=== PATIENT | female | born 1995 | race Caucasian/White ===

== ENCOUNTER 2016-04-23 19:50 | Emergency (ER) | payer OTHER ==
[~2016-04-23] VITALS: Ht 149.9 cm; Wt 108.5 kg
[~2016-04-23 19:50] MED LIST: HYDR25SU23 PR; PANT40TA3 PO
[2016-04-23 19:59] VITALS: Ht 149.9 cm; Wt 108.5 kg
[2016-04-23] MEDS ORDERED: SOD CHLORIDE 0.9% 1,000 ML IV STA (21:47)
[2016-04-23] MEDS ORDERED: ONDANSETRON 4 MG INJ IV STA (21:47)
[2016-04-23] MEDS ORDERED: morphine 4 MG/ML VIAL IV STA (21:47)
--- NOTE | 2016-04-23 22:06 | ERD ---
ER Documentation Chief Complaint Date/Time DATE: 04/23/16 TIME: 22:03 Chief Complaint RLQ abd. pain since today- hx R ovarian cyst. N/V/D x 2 wks, fever/dysuria HPI 20-year-old female presents here in emergency department for complaints of right lower quadrant abdominal pain started today. Patient described the pain as sharp pain, 6/10 scale, accompanied with fever, and nausea vomiting diarrhea. Patient had nausea vomiting diarrhea for 2 weeks now. Patient started to have fever today. Patient also has been complaining of dysuria, burning pain , 4/10 scale, worse upon urination. Patient denies any flank pain. Patient denies any sick contacts. Patient has history of ovarian cyst on the right side , worried that it may be causing the pain. ROS All systems reviewed and are negative except as per history of present illness. Medications Home Meds Active Scripts Hydrocortisone Acetate (Anusol-Hc) 25 Mg Supp.rect, 25 MG ND QHS Y for HEMORROID PAIN/ITCHING for 28 Days, SUPP.RECT Prov:RAMSEY MENENDEZ MD 12/30/15 Pantoprazole* (Protonix*) 40 Mg Tablet.dr, 40 MG PO DAILY for 28 Days, TAB Prov:RAMSEY MENENDEZ MD 12/30/15 Allergies Allergies: Coded Allergies: No Known Allergy (Unverified , 12/27/15) PMhx/Soc History of Surgery: Yes (Tonsillectomy) Anesthesia Reaction: No Hx Neurological Disorder: No Hx Respiratory Disorders: No Hx Cardiac Disorders: No Hx Psychiatric Problems: No Hx Miscellaneous Medical Probl: Yes (Right breast lump) Hx Alcohol Use: No Hx Substance Use: No Hx Tobacco Use: No FmHx Family History: No coronary disease, No diabetes, No other Physical Exam Vitals Vital Signs Date Time Temp Pulse Resp B/P Pulse Ox O2 Delivery O2 Flow Rate FiO2 04/23/16 19:59 98.8 98 20 141/99 98 Physical Exam GENERAL: The patient is well developed and appropriate for usual state of health, in no apparent distress. CHEST: Clear to auscultation bilaterally. There are no rales, wheezes or rhonchi. HEART: Regular rate and rhythm. No murmurs, clicks, rubs or gallops. No S3 or S4. ABDOMEN: Soft, nontender and nondistended. Good bowel sounds. No rebound or guarding. No gross peritonitis. No gross organomegaly or masses. No Arguello sign or McBurney point tenderness. BACK: No midline or flank tenderness. EXTREMITIES: Equal pulses bilaterally. There is no peripheral clubbing, cyanosis or edema. No focal swelling or erythema. Full range of motion. Grossly neurovascularly intact. NEURO: Alert and oriented. Cranial nerves 2-12 intact. Motor strength in all 4 extremities with 5/5 strength. Sensation grossly intact. Normal speech and gait. SKIN: There is no apparent rash or petechia. The skin is warm and dry. HEMATOLOGIC AND LYMPHATIC: There is no evidence of excessive bruising or lymphedema. No gross cervical, axillary, or inguinal lymphadenopathy. Result Diagram: 04/23/16219904/23/162199 Results 24 hrs Laboratory Tests Test 04/23/16 22:00 Alanine Aminotransferase (ALT/SGPT) 41IU/L Albumin 4.4g/dl Albumin/Globulin Ratio 1.10 Alkaline Phosphatase 120IU/L Anion Gap 17 Aspartate Amino Transf (AST/SGOT) 28IU/L Basophils # 0.010^3/ul Basophils % 0.5% Blood Urea Nitrogen 15mg/dl Calcium Level 9.3mg/dl Carbon Dioxide Level 26mmol/L Chloride Level 103mmol/L Creatinine 0.65mg/dl Direct Bilirubin 0.00mg/dl Eosinophils # 0.310^3/ul Eosinophils % 3.2% Globulin 4.00g/dl Glucose Level 95mg/dl Hematocrit 39.2% Hemoglobin 13.3g/dl Indirect Bilirubin 0.2mg/dl Lipase 86U/L Lymphocytes # 2.310^3/ul Lymphocytes % 28.7% Mean Corpuscular Hemoglobin 31.1pg Mean Corpuscular Hemoglobin Concent 34.0g/dl Mean Corpuscular Volume 91.5fl Mean Platelet Volume 8.0fl Monocytes # 0.410^3/ul Monocytes % 5.7% Neutrophils # 4.910^3/ul Neutrophils % 61.9% Nucleated Red Blood Cells # 0.010^3/ul Nucleated Red Blood Cells % 0.0/100WBC Platelet Count 93064^3/UL Potassium Level 4.0mmol/L Red Blood Count 4.2810^6/ul Red Cell Distribution Width 13.1% Sodium Level 142mmol/L Total Bilirubin 0.2mg/dl Total Protein 8.4g/dl Urine Bacteria MODERATE Urine Bilirubin NEGATIVE Urine Clarity CLOUDY Urine Color YELLOW Urine Glucose NEGATIVE% Urine Hemoglobin NEGATIVE Urine Ketones NEGATIVE Urine Leukocyte Esterase TRACE Urine Microscopic RBC 0-2/HPF Urine Microscopic WBC 5-10/HPF Urine Nitrite NEGATIVE Urine Specific [place] 1.025 Urine Squamous Epithelial Cells MODERATE Urine Total Protein NEGATIVE Urine Urobilinogen 0.2 E.U./dL Urine pH 6.0 White Blood Count 7.910^3/ul Current Medications Medications (Trade) Dose Ordered Sig/Katrin Route PRN Reason Start Time Stop Time Status Last Admin Dose Admin Sodium Chloride (NS) 1,000 ml @ 1,000 mls/hr Q1H STAT IV 04/23/16 21:47 04/23/16 22:46 DC 04/23/16 22:17 Morphine Sulfate (morphine) 4 mg ONCE STAT IV 04/23/16 21:47 04/23/16 21:49 DC 04/23/16 22:17 Ondansetron HCl (Zofran Inj) 4 mg ONCE STAT IV 04/23/16 21:47 04/23/16 21:49 DC 04/23/16 22:17 Patient was given medication for pain here in emergency department, after treatment, patient verbalized feeling much better. Patient's pain is improved. Patient was given Zofran here in the emergency department. After treatment, patient was able to tolerate po fluids here in the emergency department without any vomiting. There is no signs and symptoms of dehydration. Normal saline IV bolus was given here in emergency department for rehydration, patient tolerated IV fluids. PROCEDURE: CT Abdomen and Pelvis without contrast. CLINICAL INDICATION: Pain. TECHNIQUE: CT scan of the abdomen and pelvis was performed on a multidetector slice CT scanner. No intravenous contrast material was utilized. Sagittal and coronal reformatted images were obtained from the axial source images. Images were reviewed on a high-resolution PACS workstation. Exam CTDlvol = 23 mGy and DLP = 1316 Gy-cm. COMPARISON: 12/27/2015 FINDINGS: There are few loops of mildly dilated small old air-fluid levels in the left abdomen. There is a small fat containing periumbilical hernia. There is a short appendix or appendiceal stump is visualized and is normal in appearance without evidence for acute appendicitis. There is no evidence for diverticulitis. There is no free fluid. The liver is enlarged 18.6 cm length and diffusely hypodense/fatty.. No intrahepatic lesions are identified. The gallbladder is normal in appearance. There is no definite biliary ductal dilation. Pancreas is normal in appearance. Spleen is unremarkable.. There are no adrenal masses. The aorta is normal caliber. Kidneys are normal in appearance without hydronephrosis, mass or calculus. Ureters are of normal caliber. Urinary bladder is unremarkable. The uterus and ovaries are unremarkable. The bones are unremarkable. Limited evaluation lung bases is unremarkable. IMPRESSION: 1. Nonspecific mildly dilated proximal/mid small bowel with mild dilatation air -fluid levels, suggestive of a mild enteritis. Remainder of bowel is normal in appearance. 2. Small appendix or appendiceal stump identified and normal in appearance without evidence for appendicitis. 3. Enlarged fatty liver. 4. Otherwise negative examination. RPTAT: HMVK .Elian Baltazar MD, MD Date Time Electronically viewed and signed by .Elian Baltazar MD, MD on 04/23/2016 23:27 .K/ CC: JOVANA GILES [employer]PER[employer] Procedures/MDM Medical Decision Making: Patient's symptoms is likely consistent with enteritis , most likely can be acute bacterial gastroenteritis, as per discussion with my attending physician, Dr. Yancey, outpatient management is appropriate at this time, patient will be covered with Flagyl and ciprofloxacin to treat with symptoms. There is also trace of leukocytes in the urine, ciprofloxacin should cover the urinary tract infection. No symptoms of pyelonephritis at this time. There is low suspicion for abdominal emergencies at this time. Patients abdominal exam is normal at this time. Patients radiology exam does not show any abdominal emergencies at this time. There is low suspicion for appendicitis , cholecystitis, abdominal aortic aneurysms or peritonitis at this time. There is low suspicion for sepsis. Patient appears well and is hemodynamically stable . Disposition: Home. Condition: Stable Prescription ciprofloxacin, Flagyl, Bentyl, Zofran Instructions: Patient is advised to take medications as prescribed. Patient is advised to rest, increase fluid intake and do brat diet for next 1-2 days and progress as tolerated. Patient is advised that if symptoms are worse, severe abdominal pain, uncontrolled vomiting, high fever, severe flank pain, worst signs and symptoms, to return to the emergency department immediately. Otherwise, patient can follow up with primary care doctor in 5-7 days. Departure Diagnosis: Primary Impression: Acute gastroenteritis Condition: Stable Patient Instructions: Bacterial Gastroenteritis Additional Instructions: Patient is advised to take medications as prescribed. Patient is advised to rest , increase fluid intake and do brat diet for next 1-2 days and progress as tolerated. Patient is advised that if symptoms are worse, severe abdominal pain , uncontrolled vomiting, high fever, severe flank pain, worst signs and symptoms , to return to the emergency department immediately. Otherwise, patient can follow up with primary care doctor in 5-7 days. JOVANA GILES NP Apr 23, 2016 22:05
[2016-04-23 22:31] LABS: BASOPHILS % 0.5 % (0.0-2.0); EOSINOPHILS # 0.3 10^3/ul (0.0-0.5); EOSINOPHILS % 3.2 % (0.0-7.0); HEMATOCRIT 39.2 % (37.0-47.0); HEMOGLOBIN 13.3 g/dl (12.0-16.0); LYMPHOCYTES # 2.3 10^3/ul (0.8-2.9); LYMPHOCYTES % 28.7 % (15.0-51.0); MEAN CORPUSCULAR HEMOGLOBIN 31.1 pg (29.0-33.0); MEAN CORPUSCULAR VOLUME 91.5 fl (82.0-101.0); MONOCYTE # 0.4 10^3/ul (0.3-0.9); MONOCYTES % 5.7 % (0.0-11.0); NEUTROPHIL # 4.9 10^3/ul (1.6-7.5); NEUTROPHILS % 61.9 % (39.0-77.0); PLATELET COUNT 327 10^3/UL (140-440); RED BLOOD COUNT 4.28 10^6/ul (4.20-5.40); RED CELL DISTRIBUTION WIDTH 13.1 % (11.5-14.5); UNCORRECTED WBC 7.9 10^3/ul (4.8-10.8); WHITE BLOOD COUNT 7.9 10^3/ul (4.8-10.8)
[2016-04-23 22:37] LABS: ADD UMIC YES; URINE BILIRUBIN (Dip) NEGATIVE (NEGATIVE); URINE BLOOD (Dip) NEGATIVE (NEGATIVE); URINE GLUCOSE (Dip) NEGATIVE (NEGATIVE); URINE KETONES (Dip) NEGATIVE (NEGATIVE); URINE LEUKOCYTE ESTERASE (Dip) TRACE (NEGATIVE); URINE NITRITE (Dip) NEGATIVE (NEGATIVE); URINE TOTAL PROTEIN (Dip) NEGATIVE (NEGATIVE); URINE UROBILINOGEN (Dip) 0.2 E.U./dL (0.1-1.0)
[2016-04-23 22:39] LABS: ALBUMIN 4.4 g/dl (3.3-4.9)
[2016-04-23 22:41] LABS: CREATININE 0.65 mg/dl (0.44-1.00)
[2016-04-23 22:42] LABS: ALBUMIN/GLOBULIN RATIO 1.1; BILIRUBIN,INDIRECT 0.2 mg/dl (0-1.1); BILIRUBIN,TOTAL 0.2 mg/dl (0.2-1.3); CALCIUM 9.3 mg/dl (8.4-10.2); TOTAL PROTEIN 8.4 g/dl (6.1-8.1)
[2016-04-23 22:54] LABS: CONDITION 1
[2016-04-23 22:57] LABS: BACTERIA,URINE MODERATE; SQUAMOUS EPITHELIAL CELL,UR MODERATE; URINE COLOR YELLOW (YELLOW); URINE RBCS 0-2 /HPF (0)
--- NOTE | 2016-04-23 23:27 | RADRPT ---
PROCEDURE: CT Abdomen and Pelvis without contrast. CLINICAL INDICATION: Pain. TECHNIQUE: CT scan of the abdomen and pelvis was performed on a multidetector slice CT scanner. N o intravenous contrast material was utilized. Sagittal and coronal reformatted images were obtained from the axial source images. Images were reviewed on a high-resolution PACS workstation. Exam CTDl vol = 23 mGy and DLP = 1316 Gy-cm. COMPARISON: 12/27/2015 FINDINGS: There are few loops of mildly dilated small old air-fluid levels in the left abdomen. There is a sma ll fat containing periumbilical hernia. There is a short appendix or appendiceal stump is visualized and is normal in appearance without evidence for acute appendicitis. There is no evidence for dive rticulitis. There is no free fluid. The liver is enlarged 18.6 cm length and diffusely hypodense/fatty.. No intrahepatic lesions are id entified. The gallbladder is normal in appearance. There is no definite biliary ductal dilation. P ancreas is normal in appearance. Spleen is unremarkable.. There are no adrenal masses. The aorta i s normal caliber. Kidneys are normal in appearance without hydronephrosis, mass or calculus. Ureters are of normal ca liber. Urinary bladder is unremarkable. The uterus and ovaries are unremarkable. The bones are unremarkable. Limited evaluation lung bases is unremarkable. IMPRESSION: 1. Nonspecific mildly dilated proximal/mid small bowel with mild dilatation air-fluid levels, sugge stive of a mild enteritis. Remainder of bowel is normal in appearance. 2. Small appendix or appendiceal stump identified and normal in appearance without evidence for clarissa endicitis. 3. Enlarged fatty liver. 4. Otherwise negative examination. RPTAT: HMVK .Elian Baltazar MD, MD Date Time Electronically viewed and signed by .Elian Baltazar MD, MD on 04/23/2016 23:27 .K/
[2016-04-23] MEDS ORDERED: CIPR500T4 PO (23:38)
[2016-04-23] MEDS ORDERED: ONDA4TAB14 PO (23:38)
[2016-04-23] MEDS ORDERED: DICY20TA59 PO (23:38)
[2016-04-23] MEDS ORDERED: METR500T PO (23:38)
[2016-04-24] VITALS: BP 129/94; PULSE 91; RESP 18; TEMP 98.9
== END 2016-04-24 | disposition home or self-care (01) ==
LOC: FTE 19:50
DX: K52.9 Noninfective gastroenteritis and colitis, unspecified (principal); R11.2 Nausea with vomiting, unspecified; R10.2 Pelvic and perineal pain
CPT/HCPCS: 36415; 74176; 80053; 81001; 83690; 85025; 96374; 96375; J2270; J2405; J7030; Z7502; 81003

== ENCOUNTER 2016-11-26 19:29 | Emergency (ER) | payer OTHER ==
[~2016-11-26] VITALS: Ht 160 cm; Wt 106.0 kg
[~2016-11-26 19:29] MED LIST changes: +CIPR500T4 PO; +DICY20TA59 PO; +METR500T PO; +ONDA4TAB14 PO
[2016-11-26 19:35] VITALS: Ht 160 cm; Wt 106.0 kg
[2016-11-26] MEDS ORDERED: OMEP20CA16 PO (21:04)
[2016-11-26] MEDS ORDERED: CEPH-443 PO (21:05)
[2016-11-26 21:40] VITALS: BP 117/84; PULSE 83; RESP 19; TEMP 98.6
--- NOTE | 2016-11-26 23:09 | ERD ---
ER Documentation Chief Complaint Date/Time DATE: 11/26/16 TIME: 23:06 Chief Complaint R ring finger swelling w/psoriasis flare today HPI Patient is a 20-year-old female with a past medical history of psoriasis who presents to the ED with right second digit finger pain 2 days. She states that it is painful by her nail. Denies fever chills. Denies radiation of pain. Denies trauma. Up-to-date with her immunizations. No other complaints. ROS All systems reviewed and are negative except as per history of present illness. Medications Home Meds Active Scripts Cephalexin* (Keflex*) 500 Mg Capsule, 500 MG PO QID for 5 Days, CAP Prov:YESSI MAJOR PA-C 11/26/16 Omeprazole* (Omeprazole*) 20 Mg Capsule.dr, 20 MG PO BID, #20 Prov:YESSI MAJOR PA-C 11/26/16 Ondansetron (Ondansetron Odt) 4 Mg Tab.rapdis, 4 MG PO Q8 Y for NAUSEA AND/OR VOMITING, #30 TAB Prov:JOVANA GILES NP 04/23/16 Ciprofloxacin Hcl* (Ciprofloxacin Hcl*) 500 Mg Tablet, 500 MG PO BID for 10 Days , TAB Prov:JOVANA GILES NP 04/23/16 Dicyclomine Hcl* (Bentyl*) 20 Mg Tablet, 20 MG PO QID, #20 TAB Prov:JOVANA GILES NP 04/23/16 Metronidazole* (Flagyl*) 500 Mg Tablet, 500 MG PO TID for 10 Days, TAB Prov:JOVANA GILES NP 04/23/16 Hydrocortisone Acetate (Anusol-Hc) 25 Mg Supp.rect, 25 MG [place] QHS Y for HEMORROID PAIN/ITCHING for 28 Days, SUPP.RECT Prov:RAMSEY MENENDEZ MD 12/30/15 Pantoprazole* (Protonix*) 40 Mg Tablet.dr, 40 MG PO DAILY for 28 Days, TAB Prov:RAMSEY MENENDEZ MD 12/30/15 Allergies Allergies: Coded Allergies: No Known Allergy (Unverified , 12/27/15) PMhx/Soc Medical and Surgical Hx: pt denies Medical Hx, pt denies Surgical Hx History of Surgery: Yes (Tonsillectomy) Anesthesia Reaction: No Hx Neurological Disorder: No Hx Respiratory Disorders: No Hx Cardiac Disorders: No Hx Psychiatric Problems: No Hx Miscellaneous Medical Probl: Yes (Right breast lump) Hx Alcohol Use: No Hx Substance Use: No Hx Tobacco Use: No Smoking Status: Never smoker FmHx Family History: No coronary disease, No diabetes, No other Physical Exam Vitals Vital Signs Date Time Temp Pulse Resp B/P Pulse Ox O2 Delivery O2 Flow Rate FiO2 11/26/16 21:40 98.6 83 19 117/84 96 Room Air 11/26/16 19:35 99.5 99 18 142/84 95 Physical Exam fema GENERAL: Well-developed, well-nourished female. Appears in no acute distress. HEAD: Normocephalic, atraumatic. EYES: Pupils are equally reactive bilaterally. EOMs grossly intact. No conjunctival erythema. ENT: Moist mucous membranes. No uvula deviation. No kissing tonsils. No exudates. NECK: Supple. No lymphadenopathy or thyromegaly. No meningismus. negative kernig. negative brudinski. LUNG: Clear to auscultation bilaterally. No rhonchi, wheezing, rales or coarse breath sounds. HEART: Regular rate and rhythm. No murmurs, rubs or gallops. NEUROLOGIC: Alert and oriented. Moving all four extremities. 5/5 strength in all extremities. Normal speech. Steady gait. SKIN: Multiple psoriatic lesions on bilateral arms with no signs of infection.. paronychia to right second digit. no signs of felon. Pulses intact. Flexion of DIP and PIP intact. No radiation of pain. Radius, ulnar and median nerve intact. . Capillary refill < 2 seconds Procedures/MDM ER COURSE: I kept the patient and/or family informed of laboratory and diagnostic imaging results throughout the emergency room course. MEDICAL DECISION MAKING: This is a 20-year-old female who presents with infection to her right second digit 2 days. Vital signs were reviewed. Patient is afebrile. Patient is not hypoxic. She is not toxic or ill-appearing. Patient has a paronychia. Abscess Incision and Drainage with irrigation by me: Location: right second digit Anesthesia: none Packing: [None] Complications: [Neurovascularly intact post procedure] 48 hour wound check. Scar minimization instructions given. Patient's skin symptoms have stabilized while they have been evaluated in the department and are appropriate for outpatient care and work up. Exam and w/u not consistent w/ sepsis, deep space infection, or foreign body. DISCHARGE: At this time, patient is stable for discharge and outpatient management with no new complaints during the ER course. Patient was sent home with Keflex and a refill of omeprazole.. Patient will be discharged home with instructions to recheck for new or worsening symptoms such as fever, nausea, weakness, LOC and to follow up with primary care in the next 1-2 days. Patient was advised to return to the ER for any new or worsening symptoms. Plan was discussed and patient and/or family understands and agrees. Home instructions were given. Departure Diagnosis: Primary Impression: Paronychia Condition: Stable Patient Instructions: Paronychia Additional Instructions: Call your primary care doctor TOMORROW for an appointment during the next 1-2 days.See the doctor sooner or return here if your condition worsens before your appointment time. YESSI MAJOR PA-C Nov 26, 2016 23:09
== END 2016-11-26 21:40 | disposition home or self-care (01) ==
LOC: FTE 19:29
DX: L03.011 Cellulitis of right finger (principal)
CPT/HCPCS: 10060; Z7502

== ENCOUNTER 2017-02-18 19:39 | Emergency (ER) | payer OTHER ==
[~2017-02-18] VITALS: Ht 149.9 cm; Wt 98.7 kg
[~2017-02-18 19:39] MED LIST changes: +CEPH-443 PO; +OMEP20CA16 PO
[2017-02-18 19:55] VITALS: Ht 149.9 cm; Wt 98.7 kg
[2017-02-18] MEDS ORDERED: ONDANSETRON 4 MG INJ IV STA (20:15)
[2017-02-18] MEDS ORDERED: FAMOTIDINE 20 MG INJ IV STA (20:15)
[2017-02-18] MEDS ORDERED: SOD CHLORIDE 0.9% 1,000 ML IV STA (20:15)
[2017-02-18] MEDS ORDERED: morphine 4 MG/ML VIAL IV STA (20:15)
--- NOTE | 2017-02-18 20:25 | ERD ---
ER Documentation Chief Complaint Chief Complaint abdominal pain/rectal bleed x 1 week HPI 22-year-old female presents here in emergency department for complaints of epigastric pain radiating to right upper quadrant abdominal area started 1 week ago. Patient describes the pain as sharp pain, 6/10 scale, not better or worse with anything. Patient denies any nausea or vomiting. Patient has been having rectal bleeding on and off for 1 week now, patient was seen here 1 year ago for the same thing, had colonoscopy done and was found to have internal hemorrhoids. Patient has been drinking heavily for the last 3 months, consumes 12 pack beer per day. Patient denies any fever or chills. Patient denies any hematuria or dysuria. Patient denies any vomiting. Patient denies any black stool. ROS All systems reviewed and are negative except as per history of present illness. Medications Home Meds Active Scripts Cephalexin* (Keflex*) 500 Mg Capsule, 500 MG PO QID for 5 Days, CAP Prov:YESSI MAJOR PA-C 11/26/16 Omeprazole* (Omeprazole*) 20 Mg Capsule., 20 MG PO BID, #20 Prov:YESSI MAJOR PA-C 11/26/16 Ondansetron (Ondansetron Odt) 4 Mg Tab.rapdis, 4 MG PO Q8 Y for NAUSEA AND/OR VOMITING, #30 TAB Prov:JOVANA GILES NP 04/23/16 Ciprofloxacin Hcl* (Ciprofloxacin Hcl*) 500 Mg Tablet, 500 MG PO BID for 10 Days , TAB Prov:JOVANA GILES NP 04/23/16 Dicyclomine Hcl* (Bentyl*) 20 Mg Tablet, 20 MG PO QID, #20 TAB Prov:JOVANA GILES NP 04/23/16 Metronidazole* (Flagyl*) 500 Mg Tablet, 500 MG PO TID for 10 Days, TAB Prov:JOVANA GILES NP 04/23/16 Hydrocortisone Acetate (Anusol-Hc) 25 Mg Supp.rect, 25 MG SD QHS Y for HEMORROID PAIN/ITCHING for 28 Days, SUPP.RECT Prov:RAMSEY MENENDEZ MD 12/30/15 Pantoprazole* (Protonix*) 40 Mg Tablet., 40 MG PO DAILY for 28 Days, TAB Prov:RAMSEY MENENDEZ MD 12/30/15 Allergies Allergies: Coded Allergies: No Known Allergy (Unverified , 02/18/17) PMhx/Soc History of Surgery: Yes (Tonsillectomy) Anesthesia Reaction: No Hx Neurological Disorder: No Hx Respiratory Disorders: No Hx Cardiac Disorders: No Hx Psychiatric Problems: No Hx Miscellaneous Medical Probl: No (Right breast lump, INTERNAL HEMORRHOIDS) Hx Alcohol Use: Yes (ONE 12 PACK BEER EVERY DAY) Hx Substance Use: No Hx Tobacco Use: No Smoking Status: Never smoker FmHx Family History: No coronary disease, No diabetes, No other Physical Exam Vitals Vital Signs Date Time Temp Pulse Resp B/P Pulse Ox O2 Delivery O2 Flow Rate FiO2 02/18/17 19:55 98.9 89 20 133/85 98 Physical Exam GENERAL: The patient is well developed and appropriate for usual state of health, in no apparent distress. CHEST: Clear to auscultation bilaterally. There are no rales, wheezes or rhonchi. HEART: Regular rate and rhythm. No murmurs, clicks, rubs or gallops. No S3 or S4. ABDOMEN: Soft, nontender and nondistended. Good bowel sounds. No rebound or guarding. No gross peritonitis. No gross organomegaly or masses. No Arguello sign or McBurney point tenderness. BACK: No midline or flank tenderness. EXTREMITIES: Equal pulses bilaterally. There is no peripheral clubbing, cyanosis or edema. No focal swelling or erythema. Full range of motion. Grossly neurovascularly intact. NEURO: Alert and oriented. Cranial nerves 2-12 intact. Motor strength in all 4 extremities with 5/5 strength. Sensation grossly intact. Normal speech and gait. SKIN: There is no apparent rash or petechia. The skin is warm and dry. HEMATOLOGIC AND LYMPHATIC: There is no evidence of excessive bruising or lymphedema. No gross cervical, axillary, or inguinal lymphadenopathy. Result Diagram: 02/18/17202102/18/172021 Results 24 hrs Laboratory Tests Test 02/18/17 20:22 02/18/17 20:30 02/18/17 21:35 White Blood Count 8.210^3/ul Red Blood Count 4.5010^6/ul Hemoglobin 14.5g/dl Hematocrit 43.2% Mean Corpuscular Volume 96.0fl Mean Corpuscular Hemoglobin 32.2pg Mean Corpuscular Hemoglobin Concent 33.6g/dl Red Cell Distribution Width 12.9% Platelet Count 60042^3/UL Mean Platelet Volume 10.2fl Neutrophils % 62.1% Lymphocytes % 26.9% Monocytes % 8.9% Eosinophils % 1.1% Basophils % 0.5% Nucleated Red Blood Cells % 0.0/100WBC Neutrophils # 5.110^3/ul Lymphocytes # 2.210^3/ul Monocytes # 0.710^3/ul Eosinophils # 0.110^3/ul Basophils # 0.010^3/ul Nucleated Red Blood Cells # 0.010^3/ul Sodium Level 147mmol/L Potassium Level 3.8mmol/L Chloride Level 107mmol/L Carbon Dioxide Level 28mmol/L Anion Gap 16 Blood Urea Nitrogen 11mg/dl Creatinine 0.81mg/dl Glucose Level 93mg/dl Calcium Level 9.7mg/dl Total Bilirubin 0.5mg/dl Direct Bilirubin 0.00mg/dl Indirect Bilirubin 0.5mg/dl Aspartate Amino Transf (AST/SGOT) 33IU/L Alanine Aminotransferase (ALT/SGPT) 52IU/L Alkaline Phosphatase 106IU/L Total Protein 8.4g/dl Albumin 4.5g/dl Globulin 3.90g/dl Albumin/Globulin Ratio 1.15 Lipase 83U/L Urine Color YELLOW Urine Clarity CLEAR Urine pH 5.0 Urine Specific Orient 1.020 Urine Ketones NEGATIVEmg/dL Urine Nitrite NEGATIVEmg/dL Urine Bilirubin NEGATIVEmg/dL Urine Urobilinogen NEGATIVEmg/dL Urine Leukocyte Esterase NEGATIVELeu/ul Urine Hemoglobin NEGATIVEmg/dL Urine Glucose NEGATIVEmg/dL Urine Total Protein NEGATIVEmg/dl Stool Occult Blood NEGATIVE Current Medications Medications (Trade) Dose Ordered Sig/Katrin Route PRN Reason Start Time Stop Time Status Last Admin Dose Admin Sodium Chloride (NS) 1,000 ml @ 1,000 mls/hr Q1H STAT IV 02/18/17 20:15 02/18/17 21:14 DC 02/18/17 20:29 Morphine Sulfate (morphine) 4 mg ONCE STAT IV 02/18/17 20:15 02/18/17 20:16 DC 02/18/17 20:29 Ondansetron HCl (Zofran Inj) 4 mg ONCE STAT IV 02/18/17 20:15 02/18/17 20:16 DC 02/18/17 20:28 Famotidine (Pepcid Iv) 20 mg ONCE STAT IV 02/18/17 20:15 02/18/17 20:16 DC 02/18/17 20:30 IV Flush 10 ml 10 ml STK-MED ONCE .ROUTE 02/18/17 21:16 02/18/17 21:17 DC 02/18/17 21:24 Sodium Chloride (NS) 100 ml @ ud STK-MED ONCE .ROUTE 02/18/17 21:17 02/18/17 21:18 DC 02/18/17 21:24 Iodixanol (Visipaque Locm) 100 ml STK-MED ONCE .ROUTE 02/18/17 21:17 02/18/17 21:18 DC 02/18/17 21:25 Patient was given medication for pain here in emergency department, after treatment, patient verbalized feeling much better. Patient's pain is improved. Patient was given Zofran here in the emergency department. After treatment, patient was able to tolerate po fluids here in the emergency department without any vomiting. There is no signs and symptoms of dehydration. Normal saline IV bolus was given here in emergency department for rehydration, patient tolerated IV fluids. PROCEDURE: US Abdomen (right upper quadrant). CLINICAL INDICATION: Right upper quadrant abdomen pain. TECHNIQUE: Multiple real-time longitudinal and transverse images of the right upper quadrant of the abdomen were acquired utilizing a curved array transducer. Images were reviewed on a high-resolution PACS workstation. COMPARISON: CT scan of the abdomen and pelvis dated 04/23/2016. FINDINGS: The liver is mildly enlarged and diffusely increased in echogenicity. There is no focal hepatic lesion. The gallbladder is normal with no stones or wall thickening. There is no pericholecystic fluid collection. The bile ducts are normal with the common bile duct measuring 3.6 mm in diameter. The visualized portions of the pancreas are unremarkable with obscuration of the tail of the pancreas. No free fluid is present. The right kidney measures 10.4 cm. There is normal echogenicity of the right kidney. There is no perinephric fluid collection. No hydronephrosis, mass, or calculus is seen. IMPRESSION: 1. Mild hepatomegaly. 2. Fatty metamorphosis of the liver. 3. Otherwise unremarkable right upper quadrant abdomen ultrasound. RPTAT: QQ .Tyson Riggs MD, MD Date Time Electronically viewed and signed by .Tyson Riggs MD, MD on 02/18/2017 20:46 .R/ CC: JOVANA GILES PAN PUSHER Procedures/MDM Medical Decision Making: Patient symptoms of epigastric pain most likely is from acidity, most likely from drinking alcohol. Lipase is normal, no symptoms of pancreatitis, no symptoms of gallbladder stones, choledocholithiasis, acute cholecystitis. Patient's bloody stool nonspecific at this time, patient had a colonoscopy department which shows that she has internal hemorrhoids, most likely causing this. At this time, occult blood test does not show any blood. Hemoglobin and hematocrit is normal at this time. There is low suspicion for abdominal emergencies at this time. Patients abdominal exam is normal at this time. Patients radiology exam does not show any abdominal emergencies at this time. There is low suspicion for appendicitis, cholecystitis, abdominal aortic aneurysms or peritonitis at this time. There is low suspicion for sepsis. Patient appears well and is hemodynamically stable. Disposition: Home. Condition: Stable Prescription omeprazole, zofran. tramadol, miralax, colace, anusol Instructions: Patient is advised to take medications as prescribed. Patient is advised to rest, increase fluid intake and do brat diet for next 1-2 days and progress as tolerated. Patient is advised that if symptoms are worse, severe abdominal pain, uncontrolled vomiting, high fever, severe flank pain, worst signs and symptoms, to return to the emergency department immediately. Otherwise, patient can follow up with primary care doctor in 5-7 days. Disclaimer: Inadvertent spelling and grammatical errors are likely due to EHR/ dictation software use and do not reflect on the overall quality of patient care. Also, please note that the electronic time recorded on this note does not necessarily reflect the actual time of the patient encounter. Departure Diagnosis: Primary Impression: Abdominal pain Abdominal location: epigastric Qualified Code: R10.13 - Epigastric pain Additional Impression: Internal hemorrhoid Condition: Stable Patient Instructions: Abdominal Pain, Hemorrhoids Additional Instructions: Patient is advised to take medications as prescribed. Patient is advised to rest , increase fluid intake and do brat diet for next 1-2 days and progress as tolerated. Patient is advised that if symptoms are worse, severe abdominal pain , uncontrolled vomiting, high fever, severe flank pain, worst signs and symptoms , to return to the emergency department immediately. Otherwise, patient can follow up with primary care doctor in 5-7 days. JOVANA GILES NP Feb 18, 2017 20:25
--- NOTE | 2017-02-18 20:46 | RADRPT ---
PROCEDURE: US Abdomen (right upper quadrant). CLINICAL INDICATION: Right upper quadrant abdomen pain. TECHNIQUE: Multiple real-time longitudinal and transverse images of the right upper quadrant of th e abdomen were acquired utilizing a curved array transducer. Images were reviewed on a high-resoluti on PACS workstation. COMPARISON: CT scan of the abdomen and pelvis dated 04/23/2016. FINDINGS: The liver is mildly enlarged and diffusely increased in echogenicity. There is no focal hepatic lesion. The gallbladder is normal with no stones or wall thickening. There is no pericholecystic fluid kanika ection. The bile ducts are normal with the common bile duct measuring 3.6 mm in diameter. The visualized portions of the pancreas are unremarkable with obscuration of the tail of the pancrea s. No free fluid is present. The right kidney measures 10.4 cm. There is normal echogenicity of the right kidney. There is no perinephric fluid collection. No hydronephrosis, mass, or calculus is seen. IMPRESSION: 1. Mild hepatomegaly. 2. Fatty metamorphosis of the liver. 3. Otherwise unremarkable right upper quadrant abdomen ultrasound. RPTAT: QQ .Tyson Riggs MD, Date Time Electronically viewed and signed by .Tyson Riggs MD, on 02/18/2017 20:46 .R/
[2017-02-18 20:47] LABS: BASOPHILS % 0.5 % (0.0-2.0); EOSINOPHILS # 0.1 10^3/ul (0.0-0.5); EOSINOPHILS % 1.1 % (0.0-7.0); HEMATOCRIT 43.2 % (37.0-47.0); HEMOGLOBIN 14.5 g/dl (12.0-16.0); LYMPHOCYTES # 2.2 10^3/ul (0.8-2.9); LYMPHOCYTES % 26.9 % (15.0-51.0); MEAN CORPUSCULAR HEMOGLOBIN 32.2 pg (29.0-33.0); MEAN CORPUSCULAR HGB CONC 33.6 g/dl (32.0-37.0); MEAN PLATELET VOLUME 10.2 fl (7.4-10.4); MONOCYTE # 0.7 10^3/ul (0.3-0.9); MONOCYTES % 8.9 % (0.0-11.0); NEUTROPHIL # 5.1 10^3/ul (1.6-7.5); NEUTROPHILS % 62.1 % (39.0-77.0); PLATELET COUNT 311 10^3/UL (140-415); RED CELL DISTRIBUTION WIDTH 12.9 % (11.5-14.5); WHITE BLOOD COUNT 8.2 10^3/ul (4.8-10.8)
[2017-02-18 20:52] LABS: ADD UMIC NO; UR ASCORBIC ACID NEGATIVE (NEGATIVE); UR BILIRUBIN (Dip) NEGATIVE (NEGATIVE); UR BLOOD (Dip) NEGATIVE (NEGATIVE); UR CLARITY CLEAR (CLEAR); UR COLOR YELLOW (YELLOW); UR GLUCOSE (Dip) NEGATIVE (NEGATIVE); UR KETONES (Dip) NEGATIVE (NEGATIVE); UR LEUKOCYTE ESTERASE (Dip) NEGATIVE Leu/ul (NEGATIVE); UR NITRITE (Dip) NEGATIVE (NEGATIVE); UR TOTAL PROTEIN (Dip) NEGATIVE (NEGATIVE); UR UROBILINOGEN (Dip) NEGATIVE (NEGATIVE)
[2017-02-18 21:05] LABS: ALBUMIN 4.5 g/dl (3.3-4.9); ALBUMIN/GLOBULIN RATIO 1.15; BILIRUBIN,INDIRECT 0.5 mg/dl (0-1.1); BILIRUBIN,TOTAL 0.5 mg/dl (0.2-1.3); CALCIUM 9.7 mg/dl (8.4-10.2); CREATININE 0.81 mg/dl (0.44-1.00); POTASSIUM 3.8 mmol/L (3.5-5.1); TOTAL PROTEIN 8.4 g/dl (6.1-8.1)
[2017-02-18] MEDS ORDERED: SOD CHLORIDE 0.9% 100 ML ONE (21:17)
[2017-02-18] MEDS ORDERED: IODIXANOL LOCM 100 ML BTL ONE (21:17)
--- NOTE | 2017-02-18 21:37 | RADRPT ---
PROCEDURE: CT Abdomen and Pelvis with contrast. CLINICAL INDICATION: Abdomen and pelvis pain. TECHNIQUE: CT scan of the abdomen and pelvis with contrast was performed. The patient was scanned following the uncomplicated intravenous administration of 100 cc of Visipaque 320. Coronal and sag ittal reformatted images were obtained from the axial source images. Images were reviewed on a high- resolution PACS workstation. Total exam DLP is 1260.98 mGy-cm. CTDIvol is 22.95 mGy. One or more of the following dose reduction techniques were used: Automated exposure control, adjustment of the mA and/or kV according to patient size, use of iterative reconstruction technique. DICOM images are available. COMPARISON: CT scan of the abdomen and pelvis dated 04/23/2016 FINDINGS: The lung bases are normal. There is no pleural effusion. The liver is enlarged and diffusely decreased in attenuation. There is no focal hepatic lesion. The gallbladder and bile ducts are normal. The spleen is normal in size. There is no focal splenic lesion. Both adrenals are normal with no enlargement or mass. The pancreas is unremarkable with no mass or evidence of pancreatitis. Both kidneys demonstrate normal contrast enhancement. There is no renal mass or hydronephrosis. The abdominal aorta is not dilated. There is no retroperitoneal lymphadenopathy or mass. There is no pelvic lymphadenopathy or mass. The bladder and distal ureters are normal. The periappendiceal region is unremarkable with no evidence of appendicitis. The appendix is well se en and appears normal. The bowel and mesentery are normal. There is no free fluid or free gas. The osseous structures are unremarkable with no fracture or lytic lesion. IMPRESSION: 1. Normal appendix. 2. No urinary tract calculus or hydronephrosis. 3. Fatty metamorphosis of the liver. 4. Hepatomegaly. 5. Otherwise unremarkable CT scan of the abdomen and pelvis. RPTAT: QQ .Tyson Riggs MD, MD Date Time Electronically viewed and signed by .Tyson Riggs MD, on 02/18/2017 21:37 .R/
[2017-02-18] MEDS ORDERED: DOCU-144 PO (22:46)
[2017-02-18] MEDS ORDERED: POLY17PO6 PO (22:46)
[2017-02-18] MEDS ORDERED: TRAM50TA2 PO (22:46)
[2017-02-18] MEDS ORDERED: OMEP20CA16 PO (22:46)
[2017-02-18] MEDS ORDERED: ONDA4TAB14 PO (22:46)
[2017-02-18 23:02] VITALS: BP 130/86; PULSE 85; RESP 20; TEMP 98.9
== END 2017-02-18 23:04 | disposition home or self-care (01) ==
LOC: FTE 19:39
DX: R10.13 Epigastric pain (principal); K64.8 Other hemorrhoids
CPT/HCPCS: 36415; 74177; 76705; 80053; 81003; 82270; 83690; 85025; 96374; 96375; J2270; J2405; J7030; Q9967; Z7502; Z7610

== ENCOUNTER 2017-03-11 21:28 | Emergency (ER) | payer OTHER ==
[~2017-03-11] VITALS: Ht 149.9 cm; Wt 98.3 kg
[~2017-03-11 21:28] MED LIST changes: +DOCU-144 PO; +POLY17PO6 PO; +TRAM50TA2 PO
[2017-03-11 21:52] VITALS: Ht 149.9 cm; Wt 98.3 kg
[2017-03-11] MEDS ORDERED: ONDANSETRON (ODT) 4 MG TAB ODT STA (22:16)
--- NOTE | 2017-03-11 22:32 | ERD ---
ER Documentation Chief Complaint Chief Complaint L flank & L sided torso area pain x a week HPI 21-year-old female presents to emergency department for complaints of left flank pain radiating to the left side of the abdomen that started 1 week ago. Patient also is complaining of diarrhea and vomiting with it. Patient does not have any blood in stool or black stool. Patient is vomiting blood in the vomit. Patient does not have any sick contacts. Patient does not have any fever or chills. Patient denies any hematuria or dysuria. ROS All systems reviewed and are negative except as per history of present illness. Medications Home Meds Active Scripts Tramadol HCl (Tramadol HCl) 50 Mg Tablet, 50 MG PO Q6 for SEVERE PAIN LEVEL 7-10 , #20 TAB Prov:JOVANA GILES NP 02/18/17 Ondansetron (Ondansetron Odt) 4 Mg Tab.rapdis, 4 MG PO Q6H Y for NAUSEA AND/OR VOMITING, #20 TAB Prov:JOVANA GILES NP 02/18/17 Docusate Sodium* (Colace*) 100 Mg Capsule, 100 MG PO TID, #30 CAP Prov:JOVANA GILES NP 02/18/17 Polyethylene Glycol* (Miralax*) 17 Gm Powd.pack, 17 GM PO DAILY, #7 Prov:JOVANA GILES NP 02/18/17 Omeprazole* (Omeprazole*) 20 Mg Capsule.dr, 20 MG PO DAILY, #30 Prov:JOVANA GILES NP 02/18/17 Cephalexin* (Keflex*) 500 Mg Capsule, 500 MG PO QID for 5 Days, CAP Prov:YESSI MAJOR PA-C 11/26/16 Omeprazole* (Omeprazole*) 20 Mg Capsule.dr, 20 MG PO BID, #20 Prov:YESSI MAJOR PA-C 11/26/16 Ondansetron (Ondansetron Odt) 4 Mg Tab.rapdis, 4 MG PO Q8 Y for NAUSEA AND/OR VOMITING, #30 TAB Prov:JOVANA GILES NP 04/23/16 Ciprofloxacin Hcl* (Ciprofloxacin Hcl*) 500 Mg Tablet, 500 MG PO BID for 10 Days , TAB Prov:JOVANA GILES. ARBORIST REPRESENTATIVE 04/23/16 Dicyclomine Hcl* (Bentyl*) 20 Mg Tablet, 20 MG PO QID, #20 TAB Prov:JOVANA GILES. ARBORIST REPRESENTATIVE 04/23/16 Metronidazole* (Flagyl*) 500 Mg Tablet, 500 MG PO TID for 10 Days, TAB Prov:JOVANA GILES. ARBORIST REPRESENTATIVE 04/23/16 Hydrocortisone Acetate (Anusol-Hc) 25 Mg Supp.rect, 25 MG VT QHS Y for HEMORROID PAIN/ITCHING for 28 Days, SUPP.RECT Prov:RAMSEY MENENDEZ MD 12/30/15 Pantoprazole* (Protonix*) 40 Mg Tablet.dr, 40 MG PO DAILY for 28 Days, TAB Prov:RAMSEY MENENDEZ MD 12/30/15 Allergies Allergies: Coded Allergies: No Known Allergy (Unverified , 02/18/17) PMhx/Soc History of Surgery: Yes (Tonsillectomy) Anesthesia Reaction: No Hx Neurological Disorder: No Hx Respiratory Disorders: No Hx Cardiac Disorders: No Hx Psychiatric Problems: No Hx Miscellaneous Medical Probl: No (Right breast lump, INTERNAL HEMORRHOIDS) Hx Alcohol Use: Yes (ONE 12 PACK BEER EVERY DAY) Hx Substance Use: No Hx Tobacco Use: No Smoking Status: Former smoker FmHx Family History: No coronary disease, No diabetes, No other Physical Exam Vitals Vital Signs Date Time Temp Pulse Resp B/P Pulse Ox O2 Delivery O2 Flow Rate FiO2 03/11/17 21:52 98.5 82 20 126/77 98 Physical Exam Physical exam GENERAL: The patient is well developed and appropriate for usual state of health, in no apparent distress. CHEST: Clear to auscultation bilaterally. There are no rales, wheezes or rhonchi. HEART: Regular rate and rhythm. No murmurs, clicks, rubs or gallops. No S3 or S4. ABDOMEN: Soft, nontender and nondistended. Good bowel sounds. No rebound or guarding. No gross peritonitis. No gross organomegaly or masses. No Arguello sign or McBurney point tenderness. BACK: No midline or flank tenderness. EXTREMITIES: Equal pulses bilaterally. There is no peripheral clubbing, cyanosis or edema. No focal swelling or erythema. Full range of motion. Grossly neurovascularly intact. NEURO: Alert and oriented. Cranial nerves 2-12 intact. Motor strength in all 4 extremities with 5/5 strength. Sensation grossly intact. Normal speech and gait. SKIN: There is no apparent rash or petechia. The skin is warm and dry. HEMATOLOGIC AND LYMPHATIC: There is no evidence of excessive bruising or lymphedema. No gross cervical, axillary, or inguinal lymphadenopathy. Result Diagram: 03/11/17224603/11/172246 Results 24 hrs Laboratory Tests Test 03/11/17 22:30 03/11/17 22:47 Urine Color YELLOW Urine Clarity CLEAR Urine pH 5.0 Urine Specific [place] 1.026 Urine Ketones NEGATIVEmg/dL Urine Nitrite NEGATIVEmg/dL Urine Bilirubin NEGATIVEmg/dL Urine Urobilinogen NEGATIVEmg/dL Urine Leukocyte Esterase TRACELeu/ul Urine Microscopic RBC 2/HPF Urine Microscopic WBC 5/HPF Urine Squamous Epithelial Cells FEW/HPF Urine Mucus FEW/HPF Urine Hemoglobin NEGATIVEmg/dL Urine Glucose NEGATIVEmg/dL Urine Total Protein NEGATIVEmg/dl White Blood Count 7.010^3/ul Red Blood Count 4.1410^6/ul Hemoglobin 13.3g/dl Hematocrit 38.9% Mean Corpuscular Volume 94.0fl Mean Corpuscular Hemoglobin 32.1pg Mean Corpuscular Hemoglobin Concent 34.2g/dl Red Cell Distribution Width 12.6% Platelet Count 01636^3/UL Mean Platelet Volume 10.5fl Neutrophils % 64.6% Lymphocytes % 27.0% Monocytes % 6.1% Eosinophils % 1.3% Basophils % 0.6% Nucleated Red Blood Cells % 0.0/100WBC Neutrophils # 4.510^3/ul Lymphocytes # 1.910^3/ul Monocytes # 0.410^3/ul Eosinophils # 0.110^3/ul Basophils # 0.010^3/ul Nucleated Red Blood Cells # 0.010^3/ul Sodium Level 143mmol/L Potassium Level 3.9mmol/L Chloride Level 108mmol/L Carbon Dioxide Level 26mmol/L Anion Gap 13 Blood Urea Nitrogen 15mg/dl Creatinine 0.82mg/dl Glucose Level 110mg/dl Calcium Level 9.5mg/dl Total Bilirubin 0.3mg/dl Direct Bilirubin 0.00mg/dl Indirect Bilirubin 0.3mg/dl Aspartate Amino Transf (AST/SGOT) 21IU/L Alanine Aminotransferase (ALT/SGPT) 48IU/L Alkaline Phosphatase 91IU/L Total Protein 6.9g/dl Albumin 3.8g/dl Globulin 3.10g/dl Albumin/Globulin Ratio 1.22 Lipase 92U/L Current Medications Medications (Trade) Dose Ordered Sig/Katrin Route PRN Reason Start Time Stop Time Status Last Admin Dose Admin Ondansetron HCl (Zofran Odt) 4 mg ONCE STAT ODT 03/11/17 22:16 03/11/17 22:18 DC 03/11/17 22:40 PROCEDURE: CT Abdomen and Pelvis without contrast. CLINICAL INDICATION: Abdominal pain. TECHNIQUE: CT scan of the abdomen and pelvis without contrast was performed on a multidetector high-resolution CT scanner. The patient was scanned without intravenous contrast. Coronal and sagittal reformatted images were obtained from the axial source images. Images were reviewed on a high-resolution PACS workstation. The total exam CTDI equals 22.88 mGy and the total exam DLP equals 1138.64 mGy-cm. DICOM images are available. One or more of the following dose reduction techniques were utilized: 1.) Automated exposure control 2.) Adjustment of the mA +/- kV according to patient's size 3.) Use of iterative reconstruction technique. COMPARISON: None. FINDINGS: CT abdomen: The lung bases are clear. The heart size is normal, without pericardial thickening or effusion. The liver demonstrates low attenuation compatible fatty infiltration. Otherwise , the liver is normal in size and density without focal mass or intrahepatic biliary dilatation. The spleen is normal in size and homogeneous in density. The stomach is partially collapsed, but is grossly unremarkable. The pancreas as visualized is normal. The gallbladder and biliary tree are unremarkable and there is no evidence for biliary dilatation. The adrenal glands are symmetric and normal. The kidneys are symmetrically unremarkable as well. No renal calculus or obstructive uropathy or mass lesion is seen. The aorta is of normal caliber. Aortic vascular calcifications are not present. There is no retroperitoneal lymphadenopathy. The luis hepatis region is clear. The bowel and mesentery, as visualized, are equally unremarkable. CT pelvis: The small bowel loops situated within the pelvis are unremarkable. The pelvic organs are normal. The pelvic sidewalls and inguinal regions are clear. The sigmoid colon and rectum are remarkable for sigmoid diverticulosis. No mass, lymphadenopathy, or free fluid is seen. No acute inflammation is seen. The discretely visualized likely appendix is unremarkable. The surrounding osseous structures are remarkable for degenerative spondylosis of the spine. No osteolytic or osteoblastic lesion is detected. IMPRESSION: 1. Fatty infiltration of the liver. 2. No evident acute appendicitis. 3. Otherwise, no acute process in the abdomen or pelvis. RPTAT: [facility] Madiha Roldan Physician Date Time Electronically viewed and signed by Madiha Roldan Physician on 03/12/2017 00:00 RS/ CC: JOVANA GILES NP Patient was given Zofran here in the emergency department. After treatment, patient was able to tolerate po fluids here in the emergency department without any vomiting. There is no signs and symptoms of dehydration. Procedures/MDM Medical Decision Making: Symptoms was likely is consistent with viral gastroenteritis. No symptoms of dehydration. There is low suspicion for abdominal emergencies at this time. Patients abdominal exam is normal at this time. Patients radiology exam does not show any abdominal emergencies at this time. There is low suspicion for appendicitis, cholecystitis, abdominal aortic aneurysms or peritonitis at this time. There is low suspicion for sepsis. Patient appears well and is hemodynamically stable. Disposition: Home. Condition: Stable Prescription Zofran, Bentyl, Tylenol ibuprofen and [place] Instructions: Patient is advised to take medications as prescribed. Patient is advised to rest, increase fluid intake and do brat diet for next 1-2 days and progress as tolerated. Patient is advised that if symptoms are worse, severe abdominal pain, uncontrolled vomiting, high fever, severe flank pain, worst signs and symptoms, to return to the emergency department immediately. Otherwise, patient can follow up with primary care doctor in 5-7 days. Disclaimer: Inadvertent spelling and grammatical errors are likely due to EHR/ dictation software use and do not reflect on the overall quality of patient care. Also, please note that the electronic time recorded on this note does not necessarily reflect the actual time of the patient encounter. Departure Diagnosis: Primary Impression: Viral gastroenteritis Condition: Stable Patient Instructions: Gastroenteritis, Viral (6Y-Adult) Additional Instructions: Patient is advised to take medications as prescribed. Patient is advised to rest, increase fluid intake and do brat diet for next 1-2 days and progress as tolerated. Patient is advised that if symptoms are worse, severe abdominal pain , uncontrolled vomiting, high fever, severe flank pain, worst signs and symptoms , to return to the emergency department immediately. Otherwise, patient can follow up with primary care doctor in 5-7 days. JOVANA GILES NP Mar 11, 2017 22:31
[2017-03-11 23:04] LABS: BASOPHILS % 0.6 % (0.0-2.0); EOSINOPHILS # 0.1 10^3/ul (0.0-0.5); EOSINOPHILS % 1.3 % (0.0-7.0); HEMATOCRIT 38.9 % (37.0-47.0); HEMOGLOBIN 13.3 g/dl (12.0-16.0); LYMPHOCYTES # 1.9 10^3/ul (0.8-2.9); MEAN CORPUSCULAR HEMOGLOBIN 32.1 pg (29.0-33.0); MEAN CORPUSCULAR HGB CONC 34.2 g/dl (32.0-37.0); MEAN PLATELET VOLUME 10.5 fl (7.4-10.4); MONOCYTE # 0.4 10^3/ul (0.3-0.9); MONOCYTES % 6.1 % (0.0-11.0); NEUTROPHIL # 4.5 10^3/ul (1.6-7.5); NEUTROPHILS % 64.6 % (39.0-77.0); PLATELET COUNT 289 10^3/UL (140-415); RED BLOOD COUNT 4.14 10^6/ul (4.20-5.40); RED CELL DISTRIBUTION WIDTH 12.6 % (11.5-14.5)
[2017-03-11 23:19] LABS: ADD UMIC YES; UR ASCORBIC ACID NEGATIVE (NEGATIVE); UR BILIRUBIN (Dip) NEGATIVE (NEGATIVE); UR BLOOD (Dip) NEGATIVE (NEGATIVE); UR CLARITY CLEAR (CLEAR); UR COLOR YELLOW (YELLOW); UR GLUCOSE (Dip) NEGATIVE (NEGATIVE); UR KETONES (Dip) NEGATIVE (NEGATIVE); UR LEUKOCYTE ESTERASE (Dip) TRACE Leu/ul (NEGATIVE); UR MUCUS FEW /HPF (NONE SEEN); UR NITRITE (Dip) NEGATIVE (NEGATIVE); UR RBC 2 /HPF (0-5); UR SPECIFIC GRAVITY (Dip) 1.026 (1.003-1.030); UR SQUAMOUS EPITHELIAL CELL FEW /HPF (FEW); UR TOTAL PROTEIN (Dip) NEGATIVE (NEGATIVE); UR UROBILINOGEN (Dip) NEGATIVE (NEGATIVE)
[2017-03-11 23:24] LABS: ALBUMIN 3.8 g/dl (3.3-4.9); ALBUMIN/GLOBULIN RATIO 1.22; BILIRUBIN,INDIRECT 0.3 mg/dl (0-1.1); BILIRUBIN,TOTAL 0.3 mg/dl (0.2-1.3); CALCIUM 9.5 mg/dl (8.4-10.2); CREATININE 0.82 mg/dl (0.44-1.00); POTASSIUM 3.9 mmol/L (3.5-5.1); TOTAL PROTEIN 6.9 g/dl (6.1-8.1)
--- NOTE | 2017-03-12 00:01 | RADRPT ---
PROCEDURE: CT Abdomen and Pelvis without contrast. CLINICAL INDICATION: Abdominal pain. TECHNIQUE: CT scan of the abdomen and pelvis without contrast was performed on a multidetector hig h-resolution CT scanner. The patient was scanned without intravenous contrast. Coronal and sagittal reformatted images were obtained from the axial source images. Images were reviewed on a high-resol [employer] PACS workstation. The total exam CTDI equals 22.88 mGy and the total exam DLP equals 1138.64 m Gy-cm. DICOM images are available. One or more of the following dose reduction techniques were utilized: 1.) Automated exposure control 2.) Adjustment of the mA +/- kV according to patient's size 3.) Use of iterative reconstruction technique. COMPARISON: None. FINDINGS: CT abdomen: The lung bases are clear. The heart size is normal, without pericardial thickening or effusion. The liver demonstrates low attenuation compatible fatty infiltration. Otherwise, the liver is normal in size and density without focal mass or intrahepatic biliary dilatation. The spleen is normal in size and homogeneous in density. The stomach is partially collapsed, but is grossly unremarkable. The pancreas as visualized is normal. The gallbladder and biliary tree are unremarkable and there is no evidence for biliary dilatation. The adrenal glands are symmetric and normal. The kidneys ar e symmetrically unremarkable as well. No renal calculus or obstructive uropathy or mass lesion is s een. The aorta is of normal caliber. Aortic vascular calcifications are not present. There is no retrop eritoneal lymphadenopathy. The luis hepatis region is clear. The bowel and mesentery, as visualiz ed, are equally unremarkable. CT pelvis: The small bowel loops situated within the pelvis are unremarkable. The pelvic organs are normal. T he pelvic sidewalls and inguinal regions are clear. The sigmoid colon and rectum are remarkable for sigmoid diverticulosis. No mass, lymphadenopathy, or free fluid is seen. No acute inflammation is seen. The discretely visualized likely appendix is unremarkable. The surrounding osseous structures are remarkable for degenerative spondylosis of the spine. No ost eolytic or osteoblastic lesion is detected. IMPRESSION: 1. Fatty infiltration of the liver. 2. No evident acute appendicitis. 3. Otherwise, no acute process in the abdomen or pelvis. RPTAT: [facility]U Madiha Roldan Physician Date Time Electronically viewed and signed by Madiha Roldan Physician on 03/12/2017 00:00 RS/
[2017-03-12] MEDS ORDERED: DICY10CA60 PO (00:10)
[2017-03-12] MEDS ORDERED: ONDA4TAB14 PO (00:10)
[2017-03-12] MEDS ORDERED: HYDR-906 PO (00:10)
[2017-03-12] MEDS ORDERED: IBUP-1542 PO (00:10)
[2017-03-12 00:31] VITALS: BP 103/82; PULSE 85; RESP 18; TEMP 98.4
== END 2017-03-12 00:34 | disposition home or self-care (01) ==
LOC: FTE 21:28
DX: A08.4 Viral intestinal infection, unspecified (principal); Z87.891 Personal history of nicotine dependence
CPT/HCPCS: 36415; 74176; 80053; 81001; 83690; 85025; Z7502; Z7610

== ENCOUNTER 2017-03-30 22:12 | Emergency (ER) | END 2017-03-31 05:22 | disposition left against medical advice (07) ==

== ENCOUNTER 2017-05-07 21:29 | Emergency (ER) | END 2017-05-08 00:54 | disposition left against medical advice (07) ==

== ENCOUNTER 2017-05-21 22:51 | Emergency (ER) | END 2017-05-22 00:21 | disposition home or self-care (01) ==

== ENCOUNTER 2017-06-28 13:44 | Emergency (ER) | END 2017-06-28 16:51 | disposition home or self-care (01) ==

== ENCOUNTER 2017-11-13 00:09 | Inpatient (IN) | END 2017-11-15 14:55 | disposition home or self-care (01) | DRG 378 ==

== ENCOUNTER 2018-04-12 22:33 | Emergency (ER) | payer SELFPAY ==
[~2018-04-12] VITALS: Ht 149.9 cm; Wt 97.5 kg
[~2018-04-12 22:33] MED LIST changes: -CEPH-443 PO; -DICY20TA59 PO; -DOCU-144 PO; -HYDR25SU23 PR; -METR500T PO; -OMEP20CA16 PO; -ONDA4TAB14 PO; -PANT40TA3 PO; +PANT40TA4 PO; -POLY17PO6 PO; -TRAM50TA2 PO
[2018-04-12 22:37] VITALS: BP 141/95; PULSE 100; RESP 18; Ht 149.9 cm; Wt 97.5 kg
[2018-04-13] MEDS ORDERED: ACET325T33 PO (13:46)
[2018-04-13] MEDS ORDERED: IBUP-1561 PO (13:46)
[2018-04-13] MEDS ORDERED: SULF1TAB31 PO (13:46)
== END 2018-04-13 01:26 | disposition left against medical advice (07) ==
LOC: FTE 22:33
DX: Z53.21 Procedure and treatment not carried out due to patient leaving prior to being seen by health care provider (principal)

== ENCOUNTER 2018-04-13 11:43 | Emergency (ER) | payer OTHER ==
[~2018-04-13] VITALS: Wt 80.0 kg
[2018-04-13 11:46] VITALS: BP 125/80; PULSE 96; RESP 18
[2018-04-13] MEDS ORDERED: BENZOCAINE 20% 56 ML SPRAY TOP STA (13:09)
--- NOTE | 2018-04-13 13:10 | ERD ---
ER Documentation Chief Complaint Chief Complaint LEFT PINKY PAIN/INJURY X 1 WEEK HPI 22-year-old female, presents to the emergency department, complaining of 1 week with worsening of left fifth finger erythema, edema and tenderness to palpation after having a manicure. The patient denies fevers, no chills, no distal weakness, numbness or tingling. ROS All systems reviewed and are negative except as per history of present illness. Medications Home Meds Active Scripts Acetaminophen* (Tylenol*) 325 Mg Tablet, 2 TAB PO Q8 PRN for PAIN AND OR ELEVATED TEMP, #20 TAB Prov:GRAYSON ABRAHAM MD 04/13/18 Ibuprofen* (Motrin*) 400 Mg Tab, 400 MG PO Q8, #12 TAB Prov:GRAYSON ABRAHAM MD 04/13/18 Sulfamethoxazole/Trimethoprim* (Bactrim Ds* Tablet) 1 Each Tablet, 1 TAB PO BID, #14 TAB Prov:GRAYSON ABRAHAM MD 04/13/18 Ciprofloxacin Hcl* (Ciprofloxacin Hcl*) 500 Mg Tablet, 500 MG PO BID for 3 Days, #14 TAB Prov:RAJESH KERN MD 11/15/17 Pantoprazole* (Pantoprazole*) 40 Mg Tablet.dr, 40 MG PO DAILY@06 for 30 Days Prov:RAJESH KERN MD 11/15/17 Allergies Allergies: Coded Allergies: No Known Allergy (Unverified , 02/18/17) PMhx/Soc Anesthesia Reaction: No Hx Neurological Disorder: No Hx Respiratory Disorders: No Hx Cardiac Disorders: No Hx Psychiatric Problems: Yes (ANXIETY, DEPRESSION) Hx Miscellaneous Medical Probl: Yes (Stomach Ulcers) Hx Alcohol Use: Yes Hx Substance Use: No Hx Tobacco Use: No Smoking Status: Current every day smoker Physical Exam Vitals Vital Signs Date Temp Pulse Resp B/P (MAP) Pulse Ox O2 O2 Flow FiO2 Time Delivery Rate 04/13/18 99.2 96 18 125/80 99 11:46 (95) Physical Exam Const: No acute distress Head: Atraumatic Eyes: Normal Conjunctiva ENT: Normal External Ears, Nose and Mouth. Neck: Full range of motion. No meningismus. Resp: Clear to auscultation bilaterally Cardio: Regular rate and rhythm, no murmurs Abd: Soft, non tender, non distended. Normal bowel sounds Skin: Left fifth finger with distal erythema, significant periungual edema and fluctuance. Back: No midline or flank tenderness Ext: No cyanosis, or edema Neur: Awake and alert Psych: Normal Mood and Affect Results 24 hrs Current Medications Medications Dose Sig/Katrin Start Time Status Last (Trade) Ordered Route PRN Stop Time Admin Dose Reason Admin Benzocaine 1 spray ONCE STAT 04/13/18 DC (Dermoplast TOP 13:09 [place]) 04/13/18 13:12 650 mg ONCE ONCE 04/13/18 DC 04/13/18 Acetaminophen PO 13:30 13:34 (Tylenol 04/13/18 13:31 Tab) Ibuprofen 400 mg ONCE ONCE 04/13/18 DC 04/13/18 (Motrin) PO 13:30 13:34 04/13/18 13:31 Procedures/MDM Differential diagnosis include but not limited to: Insect bite, traumatic injury, herpetic sandra, dermoid cyst. Low suspicion for acute systemic infection. Physical examination and clinical presentation consistent most likely with paronychia of left fifth finger. During the ED course the patient remained stable, no new complaints. Paronychia I&D The procedure was explained and consent obtained. The area was cleaned with iodine. A sterile drape and prep were done. The fluctuant area around the nail, was excised with an 18-gauge needle obtaining moderate amount of pus, the area was expressed and irrigated with normal saline. Antibiotic ointment was applied. The patient tolerated the procedure well. The patient is stable to be treated outpatient and will be discharged home. some side effects of prescribed medications (headache, rash, nausea, vomiting, diarrhea, drowsiness, habituation, bleeding, hypertension, interactions with other medications) were reviewed. The patient was instructed to follow up with the primary care provider in the next 48h. If symptoms persist, worsen or new symptoms develop, then patient should return to the ED immediately. Instructions explained and given directly by me to the patient with acknowledgment and demonstrated understanding. Disclaimer: Inadvertent spelling and grammatical errors are likely due to EHR/dictation software use and do not reflect on the overall quality of patient care. Also, please note that the electronic time recorded on this note does not necessarily reflect the actual time of the patient encounter. Departure Diagnosis: Primary Impression: Paronychia of finger of left hand Condition: Stable Additional Instructions: Thank you very much for allowing us to participate in your care. Your health and safety is our top priority at [facility]. Call your primary care doctor TOMORROW for an appointment during the next 2-4 days and bring all the information and medications prescribed. Have prescriptions filled and follow precisely the directions on the label. If the symptoms get worse and your provider is unavailable, return to the [facility] immediately. GRAYSON ABRAHAM MD Apr 13, 2018 13:10
[2018-04-13] MEDS ORDERED: IBUPROFEN 200 MG TAB PO ONE (13:30)
[2018-04-13] MEDS ORDERED: ACETAMINOPHEN 325 MG TAB PO ONE (13:30)
[2018-04-13] MEDS ORDERED: IBUP-1561 PO (13:46)
[2018-04-13] MEDS ORDERED: SULF1TAB31 PO (13:46)
[2018-04-13] MEDS ORDERED: ACET325T33 PO (13:46)
== END 2018-04-13 13:51 | disposition home or self-care (01) ==
LOC: FTE 11:43
DX: L03.012 Cellulitis of left finger (principal); F17.210 Nicotine dependence, cigarettes, uncomplicated
CPT/HCPCS: Z7502; Z7610; 99282

== ENCOUNTER 2019-01-21 20:38 | Emergency (ER) | payer OTHER ==
[~2019-01-21] VITALS: Ht 149.9 cm; Wt 99.5 kg
[~2019-01-21 20:38] MED LIST changes: +ACET325T33 PO; +CARAS PO; +FAMO40TA5 PO; +HYDR-4011 PO; +IBUP-1561 PO; +NALO4SPR NS; +OXYC-279 PO; +POLY17PO6 PO; +SULF1TAB31 PO
[2019-01-21 21:02] VITALS: Ht 149.9 cm; Wt 99.5 kg
[2019-01-21] MEDS ORDERED: SOD CHLORIDE 0.9% 1,000 ML IV ONE (23:00)
[2019-01-21] MEDS ORDERED: ONDANSETRON 4 MG INJ IV STA (23:00)
[2019-01-21] MEDS ORDERED: morphine 4 MG/ML VIAL IV STA (23:00)
[2019-01-21] MEDS ORDERED: PANTOPRAZOLE 40 MG INJ IV ONE (23:00)
[2019-01-22] MEDS ORDERED: morphine 2 MG INJ IV STA (00:41)
[2019-01-22] MEDS ORDERED: LIDOCAINE/MYLANTA 40 ML BTL PO ONE (01:00)
[2019-01-22 01:26] VITALS: BP 114/59; PULSE 86; RESP 19
== END 2019-01-22 01:50 | disposition home or self-care (01) ==
LOC: FTE 20:38
DX: K80.20 Calculus of gallbladder without cholecystitis without obstruction (principal); K21.9 Gastro-esophageal reflux disease without esophagitis; R10.11 Right upper quadrant pain
CPT/HCPCS: 76705; 80053; 81003; 81025; 83690; 85025; 85610; 85730; 87086; 96361; 96374; 96375; 96376; C9113; J2270; J2405; J7030; Z7502; Z7610

== ENCOUNTER 2019-01-22 18:35 | Inpatient (IN) | payer OTHER ==
[~2019-01-22] VITALS: Ht 149.9 cm; Wt 101.0 kg
[2019-01-22] MEDS ORDERED: HYDROmorphONE 1 MG/ML SYG IV STA (20:43)
[2019-01-22] MEDS ORDERED: PIPER-TAZO 3.375 GM IV (PMX) 100 ML IVPB STA (20:43)
[2019-01-22] MEDS ORDERED: ONDANSETRON 4 MG INJ IV STA ×2 (20:43→21:57)
[2019-01-22] MEDS ORDERED: SOD CHLORIDE 0.9% 150 ML IV STA (20:43)
[2019-01-22] MEDS ORDERED: ACETAMINOPHEN 325 MG TAB PO PRN (22:30)
[2019-01-23] VITALS (15 sets, daily range): BP systolic 91–136; BP diastolic 54–91; PULSE 62–92; RESP 15–21; Ht 149.9 cm; Wt 101.0 kg
[2019-01-23] MEDS: DEXTROSE 5%-0.45% NACL 1,000 ML IV SCH ×4 (00:33→22:51)
[2019-01-23] MEDS ORDERED: KETOROLAC 30 MG INJ IV ONE (00:38)
[2019-01-23] MEDS: ONDANSETRON 4 MG INJ IV PRN ×2 (00:45→18:39)
[2019-01-23] MEDS: HYDROmorphONE 1 MG/ML SYG IV PRN ×3 (00:45→22:46)
[2019-01-23] MEDS ORDERED: ONDANSETRON 4 MG INJ IV PRN (01:00)
[2019-01-23] MEDS ORDERED: NACL 0.9% 3 ML SYG IV SCH (01:00)
[2019-01-23] MEDS ORDERED: METOCLOPRAMIDE 10 MG INJ IV ONE (03:00)
[2019-01-23] MEDS ORDERED: INDOMETHACIN 50 MG SUPP PR ONE (10:30)
[2019-01-23] MEDS ORDERED: DESFLURANE 15 MIN ONE (11:28)
[2019-01-23] MEDS ORDERED: MIDAZOLAM 1 MG/ML 2 ML INJ ONE (11:28)
[2019-01-23] MEDS ORDERED: PROPOFOL 20 ML ONE (11:28)
[2019-01-23] MEDS ORDERED: ROCURONIUM 50 MG INJ ONE (11:28)
[2019-01-23] MEDS ORDERED: CEFAZOLIN 1 GM INJ ONE (11:28)
[2019-01-23] MEDS ORDERED: FENTAnyl 50 MCG/ML VIAL ONE (11:28)
[2019-01-23] MEDS ORDERED: LIDOCAINE 2% (SDV) 5 ML INJ ONE (11:28)
[2019-01-23] MEDS ORDERED: ONDANSETRON 4 MG INJ ONE (11:53)
[2019-01-23] MEDS ORDERED: IOHEXOL 300MG/ML 30 ML BTL ONE (12:04)
[2019-01-23] MEDS ORDERED: SUGAMMADEX SODIUM 200 MG/2 ML VIAL IV ONE ×2 (12:11→12:19)
[2019-01-23] MEDS ORDERED: MIDAZOLAM 1 MG/ML 2 ML INJ IV ONE (12:30)
[2019-01-23] MEDS: morphine 4 MG/ML VIAL IV PRN (16:33)
[2019-01-23] MEDS ORDERED: SOD CHLORIDE 0.9% 250 ML IV ONE (23:30)
[2019-01-24] VITALS (16 sets, daily range): BP systolic 103–137; BP diastolic 61–107; PULSE 71–96; RESP 14–27
[2019-01-24] MEDS ORDERED: SOD CHLORIDE 0.9% 500 ML IV ONE
[2019-01-24] MEDS: DEXTROSE 5%-0.45% NACL 1,000 ML IV SCH ×3 (01:15→17:30)
[2019-01-24] MEDS: morphine 4 MG/ML VIAL IV PRN ×2 (06:31→10:35)
[2019-01-24] MEDS ORDERED: FLU VACC QS 2019-20 (6MOS UP) 0.5 ML SYG IM* ONE (10:00)
[2019-01-24] MEDS ORDERED: ROCURONIUM 50 MG INJ ONE (14:45)
[2019-01-24] MEDS ORDERED: CEFAZOLIN 1 GM INJ ONE (14:45)
[2019-01-24] MEDS ORDERED: BUPIVACAINE 0.25%/EPI (SDV) 10 ML INJ ONE (14:52)
[2019-01-24] MEDS ORDERED: PROPOFOL 20 ML ONE (15:02)
[2019-01-24] MEDS ORDERED: LIDOCAINE 2% (SDV) 5 ML INJ ONE (15:02)
[2019-01-24] MEDS ORDERED: MIDAZOLAM 1 MG/ML 2 ML INJ ONE ×2 (15:04→16:18)
[2019-01-24] MEDS ORDERED: FENTAnyl 50 MCG/ML VIAL ONE ×2 (15:05→15:41)
[2019-01-24] MEDS ORDERED: ONDANSETRON 4 MG INJ ONE (15:26)
[2019-01-24] MEDS ORDERED: DEXAMETHASONE 4 MG/ML 5 ML INJ ONE (15:41)
[2019-01-24] MEDS ORDERED: DIPHENHYDRAMINE 50 MG INJ IV PRN (16:00)
[2019-01-24] MEDS ORDERED: MEPERIDINE 25 MG INJ IV PRN (16:00)
[2019-01-24] MEDS ORDERED: OXYCODONE/ACETAMINOPHEN (5/325) TAB PO PRN ×3 (16:00→16:30)
[2019-01-24] MEDS ORDERED: HYDROmorphONE 1 MG/5 ML IV SYRINGE IV PRN ×3 (16:00)
[2019-01-24] MEDS ORDERED: hydrALAzine 20 MG INJ IV PRN (16:00)
[2019-01-24] MEDS ORDERED: FENTAnyl 50 MCG/ML VIAL IV PRN ×2 (16:00)
[2019-01-24] MEDS ORDERED: ALBUTEROL 0.083% (NEB) 2.5 MG/3 ML AMP HHN PRN (16:00)
[2019-01-24] MEDS ORDERED: IPRATROPIUM (NEB) 0.5 MG/2.5 ML AMP HHN PRN (16:00)
[2019-01-24] MEDS ORDERED: LABETALOL HCL 20MG INJ IV PRN (16:00)
[2019-01-24] MEDS ORDERED: ONDANSETRON 4 MG INJ IV PRN (16:00)
[2019-01-24] MEDS ORDERED: EPHEDrine 25 MG/5 ML SYG IV PRN (16:00)
[2019-01-24] MEDS ORDERED: SUGAMMADEX SODIUM 200 MG/2 ML VIAL IV ONE (16:03)
[2019-01-24] MEDS ORDERED: MIDAZOLAM 1 MG/ML 2 ML INJ IV ONE (16:30)
[2019-01-24] MEDS ORDERED: morphine 2 MG INJ IV PRN (16:30)
[2019-01-24] MEDS: FENTAnyl 50 MCG/ML VIAL IV PRN ×2 (16:47→16:53)
[2019-01-24] MEDS: ONDANSETRON 4 MG INJ IV PRN (20:43)
[2019-01-24] MEDS: OXYCODONE/ACETAMINOPHEN (5/325) TAB PO PRN (23:29)
[2019-01-25] MEDS: DEXTROSE 5%-0.45% NACL 1,000 ML IV SCH ×2 (00:42→10:41)
[2019-01-25 02:05] VITALS: BP 106/65; PULSE 84; RESP 20
[2019-01-25] MEDS: ONDANSETRON 4 MG INJ IV PRN ×3 (04:30→18:36)
[2019-01-25] MEDS: OXYCODONE/ACETAMINOPHEN (5/325) TAB PO PRN (07:06)
[2019-01-25 08:00] VITALS: BP 126/89; PULSE 80; RESP 16
[2019-01-25] MEDS ORDERED: IBUPROFEN 400 MG TAB PO PRN (11:30)
[2019-01-25 14:00] VITALS: BP 103/69; PULSE 70; RESP 16
[2019-01-25] MEDS: morphine 2 MG INJ IV PRN ×2 (14:43→21:32)
[2019-01-25 20:34] VITALS: BP 110/65; PULSE 74; RESP 18
[2019-01-26] MEDS: morphine 2 MG INJ IV PRN (01:44)
[2019-01-26 02:16] VITALS: BP 102/60; PULSE 78; RESP 20
[2019-01-26 08:00] VITALS: BP 99/63; PULSE 71; RESP 17
[2019-01-26] MEDS ORDERED: DEXTROSE 5%-0.45% NACL 1,000 ML IV SCH (12:00)
[2019-01-26] MEDS: SUCRALFATE (100 MG/ML) 10ML CUP PO SCH ×3 (12:21→21:21)
[2019-01-26] MEDS ORDERED: SCOPOLAMINE 1.5 MG PATCH TRANSDERM SCH (13:00)
[2019-01-26 14:00] VITALS: BP 114/59; PULSE 79; RESP 17
[2019-01-26] MEDS: HYDROCODONE/APAP (5/325) TAB PO PRN ×2 (17:22→21:22)
[2019-01-26 20:00] VITALS: BP 114/72; PULSE 74; RESP 18
[2019-01-26 22:29] VITALS: BP 107/62; PULSE 74
[2019-01-26] MEDS: ONDANSETRON 4 MG INJ IV PRN (22:29)
[2019-01-27 02:00] VITALS: BP 94/58; PULSE 74; RESP 17
[2019-01-27 08:00] VITALS: BP 107/65; PULSE 58; RESP 16
[2019-01-27] MEDS: SUCRALFATE (100 MG/ML) 10ML CUP PO SCH ×4 (08:52→20:22)
[2019-01-27 14:00] VITALS: BP 102/61; PULSE 74; RESP 16
[2019-01-27] MEDS: ONDANSETRON 4 MG INJ IV PRN (17:47)
[2019-01-27] MEDS: KETOROLAC 30 MG INJ IV PRN (20:23)
[2019-01-27 20:26] VITALS: BP 118/58; PULSE 84; RESP 18
[2019-01-28 02:14] VITALS: BP 96/70; PULSE 89; RESP 19
[2019-01-28 08:00] VITALS: BP 99/58; PULSE 79; RESP 16
[2019-01-28] MEDS: SUCRALFATE (100 MG/ML) 10ML CUP PO SCH ×2 (10:44→13:38)
[2019-01-28] MEDS: KETOROLAC 30 MG INJ IV PRN (10:52)
[2019-01-28] MEDS ORDERED: SENNA/DOCUSATE NA (8.6MG/50MG) TAB PO PRN (12:00)
[2019-01-28] MEDS ORDERED: POLYETHYLENE GLYCOL 17 GM PACKET PO SCH (12:00)
[2019-01-28 14:00] VITALS: BP 111/71; PULSE 79; RESP 16
== END 2019-01-28 16:51 | disposition home or self-care (01) | DRG 418 ==
LOC: E/R 18:35 → 5EC 22:07
PROVIDERS: ADMIT Internal Medicine; ATTEND Internal Medicine
PROC: 0FC98ZZ Extirpation of Matter from Common Bile Duct, Via Natural or Artificial Opening Endoscopic (ICD-10-PCS; 2019-01-23)
PROC: BF13YZZ Fluoroscopy of Gallbladder and Bile Ducts using Other Contrast (ICD-10-PCS; 2019-01-23)
PROC: 0FT44ZZ Resection of Gallbladder, Percutaneous Endoscopic Approach (ICD-10-PCS; principal; 2019-01-24 14:30)
DX: K80.70 Calculus of gallbladder and bile duct without cholecystitis without obstruction (principal); Z68.42 Body mass index [BMI] 45.0-49.9, adult; K21.9 Gastro-esophageal reflux disease without esophagitis; Z87.11 Personal history of peptic ulcer disease; F32.9 Major depressive disorder, single episode, unspecified; F41.9 Anxiety disorder, unspecified; K76.0 Fatty (change of) liver, not elsewhere classified; E66.01 Morbid (severe) obesity due to excess calories; L40.9 Psoriasis, unspecified; D64.9 Anemia, unspecified; K59.09 Other constipation
CPT/HCPCS: 36415; 74330; 80048; 80053; 81001; 81003; 83690; 83735; 84100; 84703; 85025; 88304; 90686; 96374; 96375; J0690; J1100; J1170; J1885; J2250; J2270; J2405; J2543; J2765; J3010; J7040; J7042; Q9967